=== PATIENT | male | born 1950 | race Caucasian/White ===

== ENCOUNTER 2023-11-14 15:13 | Emergency (ER) | payer OTHER ==
[~2023-11-14] VITALS: Ht 144.8 cm; Wt 64.4 kg
[2023-11-14 15:30] VITALS: BP 142/65; PULSE 58; RESP 14; TEMP 97.2; O2SAT 95
[2023-11-14 15:56] VITALS: TEMP 97.2
[2023-11-14] MEDS: MORPHINE SULFATE 2 MG/ML SYR IVP ONE (16:48)
[2023-11-14 18:45] LABS: BASOPHILS % (AUTO) 0.5 % (0.0-2.0); EOSINOPHILS # (AUTO) 0.1 K/uL (0-0.4); EOSINOPHILS % (AUTO) 1.4 % (0.0-4.0); HEMATOCRIT 41.9 % (36-52); LYMPHOCYTES # (AUTO) 1.4 K/uL (2.0-11.5); MEAN CORPUSCULAR HEMOGLOBIN 31 pg (27-31); MEAN CORPUSCULAR HGB CONC 33 g/dL (33-37); MONOCYTES # (AUTO) 0.5 K/uL (0.8-1.0); MONOCYTES % (AUTO) 6.3 % (1.7-9.3); NEUTROPHILS # (AUTO) 6.5 K/uL (1.8-7.7); NEUTROPHILS % (AUTO) 75.8 % (42.2-75.2); PLATELET COUNT (AUTO) 199 K/uL (140-450); RED BLOOD CELL COUNT(AUTO) 4.55 MIL/uL (4.20-6.10); RED CELL DISTRIBUTION WIDTH 13.9 % (11.6-13.7); WHITE BLOOD COUNT (AUTO) 8.6 K/uL (4.8-10.8)
[2023-11-14 18:58] LABS: ANION GAP 14.3 (8-16); CALCIUM 9.2 mg/dL (8.5-10.1); CARBON DIOXIDE 26.5 mmol/L (21-32); CHLORIDE 104 mmol/L (98-107); CREATININE 0.7 mg/dL (0.6-1.3); GLUCOSE 90 mg/dL (74-106); POTASSIUM 3.8 mmol/L (3.5-5.1); SODIUM SERUM 141 mmol/L (136-145); UREA NITROGEN, BLOOD 11 mg/dL (7-18)
[2023-11-14 19:05] LABS: ALBUMIN 3.6 g/dL (3.4-5.0); BILIRUBIN,DIRECT 0.1 mg/dL (0.0-0.3); TOTAL BILIRUBIN 0.5 mg/dL (0.0-1.0); TOTAL PROTEIN, SERUM 6.9 g/dL (6.4-8.2)
[2023-11-14 19:33] LABS: APPEARANCE,URINE CLEAR (CLEAR); BILIRUBIN,URINE NEGATIVE (NEGATIVE); BLOOD, URINE NEGATIVE (NEGATIVE); COLOR,URINE YELLOW (YELLOW); LEUKOCYTE ESTERASE ,URINE NEGATIVE (NEGATIVE); NITRITE, URINE NEGATIVE (NEGATIVE); PROTEIN,URINE NEGATIVE (NEGATIVE); UGLUCOSE 3+ (NEGATIVE); UROBILINOGEN,URINE 0.2 EU/dL (0.2 - 1)
[2023-11-14 20:36] VITALS: BP 131/72; PULSE 59; RESP 17; O2SAT 94
== END 2023-11-14 21:09 ==
LOC: MED 15:13
DX: S40.012A Contusion of left shoulder, initial encounter (principal); S70.02XA Contusion of left hip, initial encounter; E11.9 Type 2 diabetes mellitus without complications; I10 Essential (primary) hypertension; R51.9 Headache, unspecified; Z86.39 Personal history of other endocrine, nutritional and metabolic disease; Z86.73 Personal history of transient ischemic attack (TIA), and cerebral infarction without residual deficits; I48.91 Unspecified atrial fibrillation; E03.9 Hypothyroidism, unspecified; W01.0XXA Fall on same level from slipping, tripping and stumbling without subsequent striking against object, initial encounter; Y93.89 Activity, other specified; Y92.091 Bathroom in other non-institutional residence as the place of occurrence of the external cause; Y99.8 Other external cause status
CPT/HCPCS: 36415; 70450; 72125; 72170; 73030; 73502; 80048; 80076; 81003; 85025; 96374; 99285; J2270

== ENCOUNTER 2023-11-20 17:02 | Inpatient (IN) | payer OTHER ==
[~2023-11-20] VITALS: Ht 157.5 cm; Wt 63.1 kg
[2023-11-20 20:00] VITALS: BP 138/64; PULSE 55; RESP 17; TEMP 97.5; O2SAT 95
[2023-11-20] MEDS ORDERED: APIX5TAB4 PO (21:11)
[2023-11-20] MEDS ORDERED: ASPI-1822 PO (21:12)
[2023-11-20] MEDS ORDERED: FINA5TAB5 PO (21:55)
[2023-11-20] MEDS ORDERED: EMPA10TA PO (21:55)
[2023-11-20] MEDS ORDERED: LEVE750T3 PO (21:55)
[2023-11-20] MEDS ORDERED: GABA300C PO ×2 (21:55)
[2023-11-20] MEDS ORDERED: LEVO0.0512 PO (21:55)
[2023-11-20] MEDS ORDERED: ATOR40TA PO (21:55)
[2023-11-20] MEDS ORDERED: SLIDE SUBQ (21:55)
[2023-11-20] MEDS ORDERED: OMEP40EC23 PO (21:55)
[2023-11-20] MEDS ORDERED: DOCU-299 PO (21:55)
[2023-11-20] MEDS ORDERED: GLUC1AUT SQ (21:55)
[2023-11-20] MEDS ORDERED: METF-938 PO (21:55)
[2023-11-20] MEDS ORDERED: TAMS0.4C96 PO (21:55)
[2023-11-20] MEDS ORDERED: INSU100S22 SUBQ (21:55)
[2023-11-20] MEDS ORDERED: MULT-2472 PO (21:55)
[2023-11-20] MEDS ORDERED: CARV6.25 PO (21:55)
[2023-11-20] MEDS ORDERED: ACET-2619 PO ×2 (21:55)
[2023-11-20] MEDS ORDERED: CHOL100013 PO (21:55)
[2023-11-21] VITALS (9 sets, daily range): BP systolic 109–155; BP diastolic 62–68; PULSE 40–59; RESP 18–20; TEMP 98–98.5; O2SAT 95–96
[2023-11-21] MEDS ORDERED: MORPHINE SULFATE 2 MG/ML SYR IVP PRN (00:50)
[2023-11-21] MEDS ORDERED: ONDANSETRON 4 MG/2 ML VIAL IVP PRN (00:50)
[2023-11-21] MEDS: DEXT 5% /NACL 0.9% 1,000 ML IV SCH (01:38)
[2023-11-21] MEDS: ACETAMINOPHEN 325 MG TAB PO PRN (10:08)
[2023-11-21] MEDS: HYDROcodone/APAP 5/325 MG 1 TAB TAB PO PRN (17:36)
[2023-11-21] MEDS ORDERED: GABAPENTIN 300 MG CAP PO SCH (21:00)
[2023-11-21] MEDS: DOCUSATE SODIUM 100 MG GELCAP PO SCH (21:44)
[2023-11-21] MEDS: carvediloL 6.25 MG TAB PO SCH (21:44)
[2023-11-21] MEDS: levETIRAcetam 500 MG TAB PO SCH (21:45)
[2023-11-21] MEDS: GABAPENTIN 300 MG CAP PO SCH (21:45)
[2023-11-22 04:00] VITALS: BP 155/56; PULSE 50; RESP 19; TEMP 97.6; O2SAT 95
[2023-11-22] MEDS: LEVOTHYROXINE 0.05 MG TAB PO SCH (05:53)
[2023-11-22 08:00] VITALS: BP 156/65; PULSE 47; RESP 18; RESP 20; TEMP 97.8; O2SAT 96
[2023-11-22] MEDS: TAMSULOSIN 0.4 MG CAP PO SCH (08:50)
[2023-11-22] MEDS: ATORVASTATIN 20 MG TAB PO SCH (08:50)
[2023-11-22] MEDS: ASPIRIN 81 MG TAB.CHEW PO SCH (08:51)
[2023-11-22] MEDS: FINASTERIDE 5 MG TAB PO SCH (08:51)
[2023-11-22 15:26] LABS: BASOPHILS % (AUTO) 0.8 % (0.0-2.0); EOSINOPHILS # (AUTO) 0.1 K/uL (0-0.4); EOSINOPHILS % (AUTO) 3.1 % (0.0-4.0); HEMATOCRIT 39.5 % (36-52); HEMOGLOBIN 13.4 g/dL (12.0-18.0); LYMPHOCYTES # (AUTO) 1.5 K/uL (2.0-11.5); MEAN CORPUSCULAR HEMOGLOBIN 31 pg (27-31); MEAN CORPUSCULAR HGB CONC 34 g/dL (33-37); MEAN CORPUSCULAR VOLUME 90.2 fL (80-94); MONOCYTES # (AUTO) 0.4 K/uL (0.8-1.0); MONOCYTES % (AUTO) 8.1 % (1.7-9.3); NEUTROPHILS # (AUTO) 2.6 K/uL (1.8-7.7); PLATELET COUNT (AUTO) 201 K/uL (140-450); RED BLOOD CELL COUNT(AUTO) 4.38 MIL/uL (4.20-6.10); RED CELL DISTRIBUTION WIDTH 14.3 % (11.6-13.7); WHITE BLOOD COUNT (AUTO) 4.6 K/uL (4.8-10.8)
[2023-11-22 15:43] LABS: ALANINE AMINOTRANSFERASE 22 U/L (12-78); ALBUMIN 3.3 g/dL (3.4-5.0); ALKALINE PHOSPHATASE 92 U/L (50-136); ANION GAP 9.7 (8-16); ASPARTATE AMINOTRANSFERASE 19 U/L (15-37); CALCIUM 8.7 mg/dL (8.5-10.1); CARBON DIOXIDE 28.9 mmol/L (21-32); CHLORIDE 105 mmol/L (98-107); CREATININE 0.6 mg/dL (0.6-1.3); GLUCOSE 136 mg/dL (74-106); POTASSIUM 3.6 mmol/L (3.5-5.1); SODIUM SERUM 140 mmol/L (136-145); TOTAL BILIRUBIN 0.5 mg/dL (0.0-1.0); TOTAL PROTEIN, SERUM 6.8 g/dL (6.4-8.2); UREA NITROGEN, BLOOD 7 mg/dL (7-18)
[2023-11-22 16:00] VITALS: BP 139/57; PULSE 50; RESP 18; TEMP 97.9; O2SAT 96
[2023-11-22 20:00] VITALS: BP_SYST 159; BP_SYST 170; BP_DIAS 73; BP_DIAS 81; PULSE 50; RESP 18; RESP 20; TEMP 96.4; TEMP 97.9; O2SAT 93; O2SAT 94
[2023-11-23 08:00] VITALS: BP 160/71; PULSE 45; RESP 18; TEMP 97; O2SAT 96
[2023-11-23] MEDS: hydrALAZINE 25 MG TAB PO PRN (08:46)
[2023-11-23] MEDS: CRUSHER, PILL MC ONE (08:54)
[2023-11-23 16:00] VITALS: BP 158/67; PULSE 61; RESP 18; TEMP 97.7; O2SAT 96
== END 2023-11-23 17:25 | DRG 554 ==
LOC: MTU 19:50
PROVIDERS: ADMIT Hospitalist; ATTEND Hospitalist
DX: M17.12 Unilateral primary osteoarthritis, left knee (principal); E44.0 Moderate protein-calorie malnutrition; I10 Essential (primary) hypertension; E11.9 Type 2 diabetes mellitus without complications; E78.5 Hyperlipidemia, unspecified; G40.909 Epilepsy, unspecified, not intractable, without status epilepticus; E03.9 Hypothyroidism, unspecified; E55.9 Vitamin D deficiency, unspecified; K29.70 Gastritis, unspecified, without bleeding; Z79.01 Long term (current) use of anticoagulants; Z68.25 Body mass index [BMI] 25.0-25.9, adult; Z79.899 Other long term (current) drug therapy
CPT/HCPCS: 36415; 80053; 83735; 85025; 87081; 97163-GP; 97530; J2270